=== PATIENT | female | born 2000 | race Asian ===

== ENCOUNTER 2023-09-15 12:45 | Emergency (ER) | payer SELFPAY ==
[~2023-09-15] VITALS: Ht 157.5 cm; Wt 53.0 kg
[2023-09-15 13:03] VITALS: O2SAT 98
[2023-09-15 13:15] VITALS: BP 115/69
[2023-09-15] MEDS ORDERED: ACETAMINOPHEN 325MG TABLET PO ONE (13:15)
[2023-09-15] MEDS ORDERED: ONDANSETRON 4MG ODT PO ONE (13:15)
[2023-09-15] MEDS ORDERED: KETOROLAC 60MG/2ML VIAL IM ONE (13:15)
[2023-09-15] MEDS ORDERED: ONDA4TAB11 PO (14:43)
[2023-09-15] MEDS ORDERED: IBUP-2029 MT (14:43)
[2023-09-15] MEDS ORDERED: ACET-2708 MT (14:43)
[2023-09-15 14:55] VITALS: PULSE 111; RESP 16; TEMP 102
== END 2023-09-15 14:56 | disposition home or self-care (01) ==
LOC: ER 12:45
DX: R50.9 Fever, unspecified (principal); R11.2 Nausea with vomiting, unspecified
CPT/HCPCS: 99283; 81025; 96372; Q0162; J1885